=== PATIENT | female | born 1985 | race Caucasian/White ===

== ENCOUNTER 2016-11-18 16:49 | Emergency (ER) | payer MEDICAID ==
[~2016-11-18] VITALS: Ht 160 cm; Wt 56.9 kg
[2016-11-18 18:02] LABS: BLOOD UREA NITROGEN 13 mg/dL (7-18)
[2016-11-18 18:08] LABS: ASPARTATE AMINO TRANSFERASE 23 U/L (15-37)
[2016-11-18 21:03] VITALS: BP 139/75
== END 2016-11-18 21:35 | disposition home or self-care (01) ==
LOC: ED 21:14
DX: N39.0 Urinary tract infection, site not specified (principal); D64.9 Anemia, unspecified; I10 Essential (primary) hypertension
CPT/HCPCS: 36415; 80053; 81001; 84703; 85025; 87077; 87086

== ENCOUNTER 2017-04-06 17:36 | Emergency (ER) | payer MEDICAID, OTHER ==
[~2017-04-06] VITALS: Ht 160 cm; Wt 54.0 kg
[2017-04-06 17:42] VITALS: BP 181/122
[2017-04-06] MEDS ORDERED: LISINOPRIL 10 MG TABLET PO ONE (18:00)
[2017-04-06] MEDS ORDERED: LISINOPRIL 20 MG TABLET ONE (18:48)
[2017-04-06] MEDS ORDERED: MORPHINE SULFATE 4 MG/ML, 1ML ONE (21:31)
== END 2017-04-06 19:34 | disposition home or self-care (01) ==
LOC: ED 18:45
DX: I10 Essential (primary) hypertension (principal)
CPT/HCPCS: 99283